=== PATIENT | male | born 1945 | race Caucasian/White ===

== ENCOUNTER 2021-08-21 13:40 | Emergency (ER) | payer OTHER ==
[2021-08-21] MEDS ORDERED: LIDOCAINE JELLY 2%- 5 ML TUBE ONE (14:20)
--- NOTE | 2021-08-21 14:44 | EDPHYS ---
Physician Documentation [facility] Name: Russel Whyte Age: 76 yrs Sex: Male : 1945 Arrival Date: 08/21/2021 Time: 13:51 Bed 20 Private MD: ED Physician Eric Waller HPI: 08/21 14:14 This 76 yrs old Male presents to ER via EMS with complaints of Wound Check. ma2 14:14 Patient has a tear on the right forearm 1 week ago, he put a Band-Aid on it but now it ma2 stuck and he is too afraid to remove it because it is painful and he would like us to apply numbing medicine before we remove the tape. Historical: - Allergies: 13:57 No Known Allergies; bp - PMHx: 13:57 Chronic obstructive lung disease; Hypertensive disorder; Hypercholesterolemia; bp - Immunization history:: Adult Immunizations up to date. - Social history:: Smoking status: Patient denies any tobacco usage or history of. - Family history:: not pertinent. ROS: 14:14 Constitutional: Negative for fever, chills, and weight loss. ma2 14:14 All other systems are negative. Exam: 14:14 Constitutional: This is a well developed, well nourished patient who is awake, alert, ma2 and in no acute distress. Chest/axilla: Normal chest wall appearance and motion. Nontender with no deformity. No lesions are appreciated. Cardiovascular: Regular rate and rhythm with a normal S1 and S2. No gallops, murmurs, or rubs. Normal PMI, no JVD. No pulse deficits. Respiratory: Lungs have equal breath sounds bilaterally, clear to auscultation and percussion. No rales, rhonchi or wheezes noted. No increased work of breathing, no retractions or nasal flaring. Abdomen/GI: Soft, non-tender, with normal bowel sounds. No distension or tympany. No guarding or rebound. No evidence of tenderness throughout. Back: No spinal tenderness. No costovertebral tenderness. Full range of motion. Skin: Warm, dry with normal turgor. Normal color with no rashes, no lesions, and no evidence of cellulitis. MS/ Extremity: Right forearm wound measures 1 x 1 cm with Band-Aid attached to it, bandage is removable however patient states it hurts to remove it., with skin tear, otherwise there is no induration redness or swelling. No signs of infection pulses equal, no cyanosis. Neurovascular intact. Full, normal range of motion. Neuro: Awake and alert, GCS 15, oriented to person, place, time, and situation. Cranial nerves II-XII grossly intact. Motor strength 5/5 in all extremities. Sensory grossly intact. Cerebellar exam normal. Normal gait. Vital Signs: 13:56 BP 127 / 75; Pulse 75; Resp 18; Temp 98; Pulse Ox 95% ; bp MDM: 14:14 Differential diagnosis: Skin tear, abrasion dressing applied by us. Data reviewed: ma2 vital signs, nurses notes. Counseling: I had a detailed discussion with the patient and/or guardian regarding: the historical points, exam findings, and any diagnostic results supporting the discharge/admit diagnosis, the presence of at least one elevated blood pressure reading (>120/80) during this emergency department visit, the need for outpatient follow up. Response to treatment: the patient's symptoms have markedly improved after treatment. 14:43 Patient medically screened. ma2 08/21 14:14 Order name: Dressing - Wound; Complete Time: 14:56 ma2 Administered Medications: 14:21 Drug: Lidocaine Gel 2 % 1 application Route: Mucous Membrane; bp Disposition Summary: 08/21/21 14:43 Discharge Ordered Location: Home ma2 Condition: Stable ma2 Diagnosis - Abrasion of right forearm ma2 Followup: ma2 - With: Private Physician - When: Tomorrow - Reason: If symptoms return, Continuance of care Discharge Instructions: - Discharge Summary Sheet ma2 - Abrasion, [id number] ma2 Forms: - Medication Reconciliation Form ma2 - Thank You Letter ma2 - Antibiotic Education ma2 - Prescription Opioid Use ma2 Signatures: Micah England RN RN Eric Osman MD MD ma2
--- NOTE | 2021-08-21 14:44 | ER ---
Nurse's Notes [facility] Name: Russel Whyte Age: 76 yrs Sex: Male : 1945 Arrival Date: 08/21/2021 Time: 13:51 Bed 20 Private MD: Diagnosis: Abrasion of right forearm Presentation: 08/21 13:56 Chief complaint: EMS states: DRESSING GROWN INTO R FOREARM WOUND. Coronavirus screen: bp At this time, the client does not indicate any symptoms associated with coronavirus-19. Ebola Screen: No symptoms or risks identified at this time. Initial Sepsis Screen: Does the patient meet any 2 criteria? No. Patient's initial sepsis screen is negative. Does the patient have a suspected source of infection? No. Patient's initial sepsis screen is negative. Risk Assessment: Do you want to hurt yourself or someone else? Patient reports no desire to harm self or others. Onset of symptoms is unknown. 13:56 Method Of Arrival: EMS: [facility] bp 13:56 Acuity: KAIN 4 bp Triage Assessment: 13:57 General: Appears in no apparent distress. comfortable, Behavior is calm, cooperative, bp appropriate for age. Pain: Denies pain. EENT: No deficits noted. Neuro: No deficits noted. Cardiovascular: No deficits noted. Respiratory: No deficits noted. GI: No signs and/or symptoms were reported involving the gastrointestinal system. : No signs and/or symptoms were reported regarding the genitourinary system. Derm: Wound noted dorsal aspect of right forearm. Musculoskeletal: No deficits noted. Historical: - Allergies: 13:57 No Known Allergies; bp - PMHx: 13:57 Chronic obstructive lung disease; Hypertensive disorder; Hypercholesterolemia; bp - Immunization history:: Adult Immunizations up to date. - Social history:: Smoking status: Patient denies any tobacco usage or history of. - Family history:: not pertinent. Screenin:00 Abuse screen: Denies threats or abuse. Denies injuries from another. Nutritional bp screening: No deficits noted. Tuberculosis screening: No symptoms or risk factors identified. Fall Risk None identified. Assessment: 14:00 General: SEE TRIAGE NOTE. bp 14:57 Reassessment: PT D/C HOME VIA W/C WITH FAMILY, DX WITH ABRASION. bp Vital Signs: 13:56 BP 127 / 75; Pulse 75; Resp 18; Temp 98; Pulse Ox 95% ; bp ED Course: 13:51 Patient arrived in ED. bp 13:57 Triage completed. bp 14:00 Eric Waller MD is Attending Physician. ma2 14:00 Arm band placed on. bp 14:00 Patient has correct armband on for positive identification. Bed in low position. Call bp light in reach. Side rails up X2. 14:08 Micah England, RN is Primary Nurse. bp 14:30 No provider procedures requiring assistance completed. Patient did not have IV access bp during this emergency room visit. Dressings: Vaseline gauze X 1; dorsal aspect of right forearm. Administered Medications: 14:21 Drug: Lidocaine Gel 2 % 1 application Route: Mucous Membrane; bp Medication: 14:00 VIS not applicable for this client. bp Outcome: 14:43 Discharge ordered by . ma2 14:57 Discharged to home via wheelchair, with family. bp 14:57 Condition: stable 14:57 Discharge instructions given to patient, Instructed on discharge instructions, follow up and referral plans. wound care, Demonstrated understanding of instructions, follow-up care, wound care. 14:58 Patient left the ED. bp Signatures: Micah England RN RN bp Eric Waller MD MD [facility]
[2021-08-21 19:41] VITALS: BP 127/75; TEMP 98; O2SAT 95
== END 2021-08-21 14:58 | disposition home or self-care (01) ==
LOC: ER 13:40
DX: S50.811A Abrasion of right forearm, initial encounter (principal); I10 Essential (primary) hypertension; J44.9 Chronic obstructive pulmonary disease, unspecified
CPT/HCPCS: 99283